=== PATIENT | female | born 1965 | race Caucasian/White ===

== ENCOUNTER 2021-02-16 00:35 | Emergency (ER) | payer MEDICARE, MEDICAID, SELFPAY ==
--- NOTE | ~2021-02-16 | CT_ITS ---
EXAMINATION: CT abdomen pelvis w con DATE: 02/16/2021 01:55 INDICATION: Epigastric pain TECHNIQUE: Computed tomography (CT) of the abdomen and pelvis was performed with 100 cc Omnipaque 350 intravenous contrast. The dose-length product was 223.81 mGy-cm. Automated exposure control and iter ative reconstruction technique were employed. COMPARISON: None. FINDINGS: Lung bases are unremarkable. Heart size normal. No significant pleural or pericardial effus ion. There is moderate colonic fecal loading. No bowel obstruction. There is nonspecific stranding in the right paracolic gutter. Normal appendix. No evidence for aortic aneurysm. No lymphadenopathy. No free air or free fluid. There is a lobulated appearance to the liver surface, suspicious for cirrhosis. The spleen, pancreas, adrenal glands and kidneys are unremarkable. No lytic or blastic lesions. IMPRESSION: 1. No acute abdominal abnormality. 2: Lobulated appearance to liver surface, suspicious for cirrhosis. Clinically correlate. Reviewed, dictated and finalized at location B.
[2021-02-16 00:39] VITALS: BP 161/92; PULSE 60; RESP 16; TEMP 36.6; O2SAT 100
--- NOTE | 2021-02-16 00:39 | ED.NAVMDI ---
HPI - Nausea/Vomiting/Diarrhea General Chief complaint: Nausea/Vomiting/Diarrhea Stated complaint: n/v/ heart palp History of Present Illness HPI Narrative: 55 yo female w/ h/o crohn's, liver transplant presents to the ED for Nausea, vomiting and abdominal pain for more than 1 year. She reports that she constantly has these symptoms. She is able to tolerate small amounts of fluid. She reports that every times she eats her abdomen swells and the pain is unbearable. She was told that following her liver transplant she had a tangle ball of nerves in her abdomen causing her symptoms. Related Data Allergies Allergy/AdvReac Type Severity Reaction Status Date / Time tacrolimus [From Prograf] Allergy Unconscious Verified 02/16/21 01:16 morphine AdvReac Vomiting Verified 02/16/21 01:16 Review of Systems Review of Systems: All systems reviewed & are unremarkable except as noted in HPI and below Constitutional: Constitutional: Reports fatigue, Denies fever(s) and Reports weakness ENT: Denies sore throat Cardiovascular: Cardiovascular: Denies chest pain Respiratory: Respiratory: Denies dyspnea Gastrointestinal: Gastrointestinal: Reports abdominal pain, Denies diarrhea, Reports nausea and Reports vomiting Genitourinary: Genitourinary: Reports no additional female genitourinary complaints Neurologic: Reports dizziness and Denies syncope [facility] Past Medical History Medical History (Updated 02/16/21 @ 04:08 by Amado Graf MD) Crohn's disease Surgical History Surgical History (Updated 02/16/21 @ 04:05 by Amado Graf MD) Liver transplant status Social History Social History (Updated 02/16/21 @ 04:06 by Amado Graf MD) Smoking status: Never smoker Exam Const: General: no acute distress and alert Orientation/consciousness: patient oriented x3 HENMT: Head: normal to inspection Neck: Neck: normal visual inspection Resp: Effort & Inspection: normal respiratory effort Auscultation: clear to auscultation bilaterally Cardio: Rate: regular rate Rhythm: regular rhythm GI: Inspection: non-distended GI Palp: Yes Soft to palpation, Yes Tenderness to palpation present (GI) (epigastric ), No Guarding due to palpation present (GI) and No Rebound tenderness present Skin: General skin exam: normal color Neuro: General: patient oriented x3, moves all extremities and CN's II-XI intact bilaterally Speech: normal speech Gait exam (Neuro): Normal gait present Extrem: General: normal to inspection and no edema Course Vital Signs Vital signs: Vital Signs Temperature 36.6 C 02/16/21 00:39 Pulse Rate 60 02/16/21 00:39 Respiratory Rate 16 02/16/21 00:39 Blood Pressure 161/92 H 02/16/21 00:39 Pulse Oximetry 100 02/16/21 00:39 Temperature 36.6 C 02/16/21 00:39 Pulse Rate 62 02/16/21 03:18 Respiratory Rate 14 02/16/21 03:18 Blood Pressure 123/84 02/16/21 03:18 Pulse Oximetry 99 02/16/21 03:18 MDM - Nausea/Vomiting/Diarrhea MDM Narrative Medical decision making narrative: Feeling better after fluids. Tolerating PO fluids. Refusing to attempt any solid food. Differential Diagnosis Differential diagnosis: Likely gastroenteritis, dehydration and other Medical Records Attestation: I reviewed the patient's medical records. Lab Data Attestation: I reviewed the patient's lab results. Result diagrams: 02/16/21 01:08 02/16/21 01:08 Labs: Lab Results 02/16/21 02/16/21 02/16/21 Range/Units 01:08 01:08 02:59 WBC 5.8 (4.5-10.0) K/mm3 RBC 3.60 L (4.2-5.4) M/mm3 Hgb 11.3 L (12.0-15.0) g/dL Hct 33.6 L (37.0-47.0) % MCV 93.3 (80-100) fl MCH 31.4 (26-34) pg MCHC 33.6 (32-36) g/dl RDW 12.1 (11.5-14.5) % Plt Count 167 (150-375) k/mm3 MPV 13.0 H (7.4-10.4) fl Immature Gran % (Auto) 0.3 (0-0.5) % Neut % (Auto) 72.1 (45.5-73.1) % Lymph % (Auto) 18.2 L (18.3-44.2) % [place] % (Auto
[2021-02-16] MEDS: ONDANSETRON INJ 4 MG/2 ML VIAL IV PUSH (01:14)
[2021-02-16] MEDS: SODIUM CHLORIDE 0.9% IV 1,000 ML 999 ML IV CONT ×3 (01:14→04:08)
[2021-02-16 01:17] LABS: Basophils Percent Auto 0.5 % (0.2-1.2); Eosinophils Absolute Auto 0.1 K/mm3 (0-0.3); Eosinophils Percent Auto 1.4 % (0-4.4); Hematocrit 33.6 % (37.0-47.0); Hemoglobin 11.3 g/dL (12.0-15.0); Immature Granulocyte Absolute 0.02 K/mm3 (0.00-0.031); Immature Granulocyte Percent A 0.3 % (0-0.5); Lymphocytes Absolute Auto 1.05 K/mm3 (0.9-3.2); Lymphocytes Percent Auto 18.2 % (18.3-44.2); Mean Corpuscular HGB Conc 33.6 g/dl (32-36); Mean Corpuscular Hemoglobin 31.4 pg (26-34); Mean Corpuscular Volume 93.3 fl (80-100); Monocytes Absolute Auto 0.4 K/mm3 (0.1-0.6); Monocytes Percent Auto 7.5 % (2.6-8.5); Neutrophils Absolute Auto 4.2 K/mm3 (1.3-6.7); Neutrophils Percent Auto 72.1 % (45.5-73.1); Platelet Count Result 167 k/mm3 (150-375); Red Cell Distribution Width 12.1 % (11.5-14.5); White Blood Count 5.8 K/mm3 (4.5-10.0)
[2021-02-16 01:33] LABS: Alanine Aminotransferase 11 U/L (4-35); Albumin Level 4.4 g/dL (3.5-5.1); Alkaline Phosphatase 116 U/L (38-126); Anion Gap 7 mmol/L (8-16); Aspartate Amino Transferase 24 U/L (14-36); Bilirubin,Total 0.5 mg/dL (0.2-1.3); Blood Urea Nitrogen 35 mg/dL (7-17); Carbon Dioxide 28 mmol/L (22-30); Chloride 103 mmol/L (98-107); Estimated CRCL calculation 27 ml/min; Estimated Glomerular Filt Rate 31; Glucose 97 mg/dL (65-105); Lipase 126 U/L (23-300); Potassium 4.2 mmol/L (3.4-5.0); Sodium 138 mmol/L (137-145)
[2021-02-16 02:00] VITALS: BP 114/80; PULSE 60; RESP 14; O2SAT 98
[2021-02-16 03:09] LABS: Add Urine Microscopic? YES; Appearance Urine Clear (Clear); Bilirubin Urine Negative (Negative); Blood Urine Negative (Negative); Color Urine Straw (Yellow); Glucose Urine UA Negative (Negative); Ketones Urine Trace mg/dL (Negative); Leukocyte Esterase Ur Negative LEU/UL (Negative); Nitrate Urine Negative (Negative); Protein Urine Negative (Negative); RBC Urine 0-2 /hpf (0-2); Specific Grav Ur 1.028 (1.001-1.035); Squamous Epithelial Cell Urine Occasional /hpf (Few); Urobilinogen Urine Negative mg/dL (<2.0); WBC Urine 0-3 /hpf
[2021-02-16 03:18] VITALS: BP 123/84; PULSE 62; RESP 14; O2SAT 99
--- NOTE | 2021-02-16 03:34 | PC.NURSE ---
Pt reports feeling better after IV fluids. Pt given water for PO Challenge.
--- NOTE | 2021-02-16 04:15 | PC.NURSE ---
No vomiting during ED visit.
[2021-02-16 04:55] VITALS: BP 121/72; PULSE 60; RESP 14; O2SAT 99
== END 2021-02-16 04:55 | disposition home or self-care (01) ==
PROVIDERS: Emergency Provider Emergency Medicine; PCP Physician Assistant
DX: R11.2 Nausea with vomiting, unspecified (principal); E86.0 Dehydration; K50.90 Crohn's disease, unspecified, without complications; Z94.4 Liver transplant status
CPT/HCPCS: 36415; 74177; 80053; 81001; 83690; 85025; 96361; 96374; 99284; J2405; J7030; Q9967

== ENCOUNTER 2021-06-21 14:59 | Emergency (ER) | payer MEDICARE, MEDICAID, SELFPAY ==
[2021-06-21 15:08] VITALS: BP 115/75; PULSE 73; RESP 16; TEMP 37.6; O2SAT 100
--- NOTE | 2021-06-21 15:47 | ED.EAR ---
HPI - Ear Problem General Chief complaint: Ear Stated complaint: clogged ears Time Seen by Provider: 06/21/21 15:47 Source: patient, RN notes reviewed and old records reviewed Mode of arrival: ambulatory Limitations: no limitations History of Present Illness HPI Narrative: 55 year old [facility] of bilateral ear pain. She states that her right ear felt clogged thinks she aggravated her discomfort by trying to get wax out using OTC ear wax kit.. Patient does state that she has been swimming lately which could be why her ears are bothering her. Patient denies any known fevers, chills or sweats, denies any tinnitus or any drainage from her ears, no fevers, chills or sweats or any other ill symptoms. MD Complaint: ear pain Location: bilateral Treatment prior to arrival: attempt at ear wax removal Related Data Home Medications Medication Instructions Recorded Confirmed aspirin 81 mg PO EVERY OTHER DAY 11/01/19 06/21/21 cyclosporine 25 mg PO BID 11/01/19 06/21/21 mycophenolate mofetil 500 mg PO BID 11/01/19 06/21/21 tramadol 50 mg PO PRN PRN 11/01/19 06/21/21 ursodiol 300 mg PO BID 11/01/19 06/21/21 alprazolam 0.5 mg PO Q6H PRN 06/21/21 06/21/21 multivitamin [Daily Multivitamin] 1 tablet PO DAILY 06/21/21 06/21/21 propranolol 20 mg PO DAILY 06/21/21 06/21/21 sennosides [senna] 8.6 mg PO DAILY PRN 06/21/21 06/21/21 trazodone 25 mg PO HS 06/21/21 06/21/21 vitamin B complex [B 1 tablet PO DAILY 06/21/21 06/21/21 Complex-Vitamin B12] Allergies Allergy/AdvReac Type Severity Reaction Status Date / Time acetaminophen Allergy Severe Unknown Verified 06/21/21 15:06 tacrolimus Allergy Severe Other Verified 06/21/21 15:06 morphine Allergy Unknown DOUBLE Verified 06/21/21 15:06 VISION pregabalin [From Lyrica] Allergy Photosensit Verified 06/21/21 15:06 ivity scopolamine [From Pamine] Allergy Photosensit Verified 06/21/21 15:06 ivity Review of Systems Review of Systems: CONSTITUTIONAL: Denies any known fever, chills, or sweats. EYES: Denies visual changes, redness, or discharge. ENT: Denies rhinorrhea, congestion, sore throat, bilateral ear otalgia. CARDIOVASCULAR: Denies chest pain, palpitations, or edema. RESPIRATORY: Denies cough or dyspnea. GASTROINTESTINAL: Denies abdominal pain, nausea, vomiting, or diarrhea. GENITOURINARY: Denies dysuria or hematuria. SKIN: Denies rash or itching. MUSCULOSKELETAL: Denies back pain, joint pain, or myalgia. NEUROLOGIC: Denies headache, numbness, or weakness. PSYCHIATRIC:Positive history of anxiety or depression. All systems reviewed & are unremarkable except as noted in HPI and below PMFSH Past Medical History Medical History (Updated 06/23/21 @ 19:44 by Kenya Correia NP) Anxiety and depression Crohn's colitis Emphysema lung Endometriosis Pneumonia Rheumatoid arthritis Surgical History Surgical History (Updated 06/23/21 @ 19:39 by Kenya Correia NP) H/O: hysterectomy Hx of cholecystectomy Liver transplant recipient Previous section Family History Family History (Updated 06/23/21 @ 19:37 by Kenya Correia NP) Father Cerebrovascular accident Heart disease Grandparent Cerebrovascular accident Arthritis Cancer Social History Social History (Updated 06/23/21 @ 19:38 by Kenya Correia NP) Smoking status: Former smoker Alcohol intake: former Alcohol use details: none since 2006 Substance use: former Substance use type: marijuana Living arrangements: with family Gender identity (if verbalized by the patient): Female Comments At time of signature, agree with nursing past medical, surgical, social and family history. There is no relevant family history pertinent to the presenting complaint Exam Narrative: GENERAL: Well-appearing, well-nourished, and in no acute distress. HEAD: Normocephalic, atraumatic. EYES: PERRLA and EOMI. ENT: Nares clear, no rhinorrhea or epistaxis
== END 2021-06-21 16:04 | disposition home or self-care (01) ==
PROVIDERS: Emergency Provider Registered Nurse; PCP Physician Assistant
DX: H60.502 Unspecified acute noninfective otitis externa, left ear (principal); H92.01 Otalgia, right ear; Z87.891 Personal history of nicotine dependence; K50.90 Crohn's disease, unspecified, without complications; J43.9 Emphysema, unspecified; N80.9 Endometriosis, unspecified; M06.9 Rheumatoid arthritis, unspecified; Z94.4 Liver transplant status
CPT/HCPCS: 99213; G0463